=== PATIENT | male | born 1965 | race Two or more races ===

== ENCOUNTER 2020-06-12 13:50 | Emergency (ER) | payer OTHER ==
[~2020-06-12] VITALS: Ht 175.3 cm; Wt 90.3 kg
[2020-06-12 14:16] VITALS: BP 145/100
[2020-06-12] MEDS ORDERED: HYDROcodone-ACET 5/325MG TAB PO ONE (15:15)
== END 2020-06-12 17:36 | disposition home or self-care (01) ==
LOC: ER 13:50
DX: S52.032A Displaced fracture of olecranon process with intraarticular extension of left ulna, initial encounter for closed fracture (principal); S52.125A Nondisplaced fracture of head of left radius, initial encounter for closed fracture; W19.XXXA Unspecified fall, initial encounter; Y93.89 Activity, other specified; Y92.89 Other specified places as the place of occurrence of the external cause; Y99.8 Other external cause status
CPT/HCPCS: 29105; 73080; 73110; 73562